=== PATIENT | female | born 1980 | race Caucasian/White ===

== ENCOUNTER 2019-05-14 00:52 | Emergency (ER) | payer OTHER ==
[2019-05-14 01:03] VITALS: BP 179/89; PULSE 87; RESP 18; TEMP 98.3
[2019-05-14] MEDS ORDERED: BUPIVACAINE (PF) 0.5% 30 ML VIAL MISCELLANE STA (01:15)
[2019-05-14] MEDS ORDERED: PENICILLIN VK 500MG STARTER 4 TAB BTL PO STA (01:15)
[2019-05-14] MEDS ORDERED: ACET/COD 300 MG/30 MG STARTER PACK 6 TAB BTL PO STA (01:15)
--- NOTE | 2019-05-14 01:35 | ED ---
General Adult HPI - General Chief complaint: Dental/Oral Stated complaint: Dental Abscess/infection Time Seen by Provider: 05/14/19 01:05 Source: patient Mode of arrival: ambulatory Limitations: no limitations - History of Present Illness Initial comments: 38-year-old female patient presents to the emergency department today for evaluation of left upper dental pain. Patient states she sent having pain to the area for quite some time however it worsened over the last couple of days. Patient states that she did notice an area of swelling to the referral mouth which she was able to pop. States fell tasting fluid came out of ear. Patient denies any trismus or difficulty swallowing. Patient states she's been having intermittent hoarse voice over the last several weeks as well. She denies any fever or chills. Has not yet followed up with a dentist for this. Patient denies any recent rash, shortness breath, chest pain, abdominal pain, diarrhea, constipation, back pain, numbness, tingling, dizziness, weakness, hematuria, dysuria, urinary urgency, urinary frequency, headache, visual changes, or any other complaints. - Related Data Home Medications Medication Instructions Recorded Confirmed Insulin Glulisine [Apidra] 20 unit SQ AC-TID 12/19/13 12/19/13 traMADol HCl [Ultram] 50 mg PO Q6H PRN 12/19/13 12/19/13 Previous Rx's Medication Instructions Recorded Ondansetron [Zofran] 4 mg PO Q8HR PRN #15 tab 12/19/13 Naproxen [EC-Naprosyn] 500 mg PO BID PRN #30 tablet. 05/14/19 Penicillin V Potassium [Pen Vee K] 500 mg PO Q6H #40 tablet 05/14/19 Allergies Allergy/AdvReac Type Severity Reaction Status Date / Time No Known Allergies Allergy Verified 05/14/19 01:03 Review of Systems ROS Statement: Those systems with pertinent positive or pertinent negative responses have been documented in the HPI. ROS Other: All systems not noted in ROS Statement are negative. Past Medical History Past Medical History: Asthma, Diabetes Mellitus, Fibromyalgia Additional Past Medical History / Comment(s): diverticulitis History of Any Multi-Drug Resistant Organisms: None Reported Past Surgical History: Bowel Resection, Section, Cholecystectomy, Tonsillectomy Past Psychological History: Anxiety, Depression Smoking Status: Current every day smoker Past Alcohol Use History: None Reported Past Drug Use History: None Reported General Exam Limitations: no limitations General appearance: alert, in no apparent distress, other (This is a well- developed, well-nourished adult female patient in no acute distress. Vital signs upon presentation are temperature 98.3F, pulse 87, respirations 18, blood pressure 179/89, pulse ox 97% on room air.) Eye exam: Present: normal appearance, PERRL, EOMI. Absent: scleral icterus, conjunctival injection, periorbital swelling ENT exam: Present: normal oropharynx, mucous membranes moist, other (Poor dentition. Left tooth #16 appears to be broken. There is surrounding gingival erythema. Possible ruptured abscess over the ribs the mouth.) Respiratory exam: Present: normal lung sounds bilaterally. Absent: respiratory distress, wheezes, rales, rhonchi, stridor Cardiovascular Exam: Present: regular rate, normal rhythm, normal heart sounds. Absent: systolic murmur, diastolic murmur, rubs, gallop, clicks Neurological exam: Present: alert, oriented X3, CN II-XII intact Psychiatric exam: Present: normal affect, normal mood Skin exam: Present: warm, dry, intact, normal color. Absent: rash Course Vital Signs 05/14/19 00:58 Temperature 98.3 F Pulse Rate 87 Respiratory 18 Rate Blood Pressure 179/89 O2 Sat by Pulse 97 Oximetry Procedures - Nerve Block Consent Obtained: verbal consent Local Anesthetic Used: Marcaine 0.5% Amount of anesthesia used: 3 Side: left Intraoral Nerve Block: superior alveolar Procedure Successful: Yes Complications: none Patient Tolerated Procedure: well, no complications Medical Decision Making - Medical Decision Making 38-year-old female patient presents to the emergency department today for evaluation of left upper dental pain. Physical examination did reveal poor dentition, gingival erythema, hyperplasia. There is possible ruptured abscess over the rough the mouth. Did perform intraoral nerve block which did improve symptoms. Be discharged with antibiotics and pain medication. She is instructed to follow-up with dentistry for recheck as soon as possible. Return parameters discussed in detail. She verbalizes understanding and agrees with this plan. Disposition Clinical Impression: Dental abscess Disposition: HOME SELF-CARE Condition: Good Instructions (If sedation given, give patient instructions): Dental Abscess (ED) Additional Instructions: Complete antibiotic prescription. Follow up with dentistry for recheck as soon as possible. Take medication as directed. Return to the emergency department for any new, worsening, or concerning symptoms. Prescriptions: Naproxen [EC-Naprosyn] 500 mg PO BID PRN #30 tablet.dr ALVAREZ Reason: Pain Penicillin V Potassium [Pen Vee K] 500 mg PO Q6H #40 tablet Is patient prescribed a controlled substance at d/c from ED?: No Referrals: Miriam Eller MD [Primary Care Provider] - 1-2 days Time of Disposition: 01:35
== END 2019-05-14 01:50 | disposition home or self-care (01) ==
LOC: EC 00:52
DX: K04.7 Periapical abscess without sinus (principal); R49.0 Dysphonia; E11.9 Type 2 diabetes mellitus without complications; F17.200 Nicotine dependence, unspecified, uncomplicated; Z79.4 Long term (current) use of insulin
CPT/HCPCS: 64400; 99282

== ENCOUNTER → 2019-12-29 | Outpatient (CLI) | payer OTHER ==
--- NOTE | 2019-12-29 12:55 | US ---
EXAMINATION TYPE: US pelvic complete DATE OF EXAM: 12/29/2019 COMPARISON: None CLINICAL HISTORY: 39-year-old female N92.0 Menorrhagia. TECHNIQUE: Transabdominal sonographic images of the pelvis were acquired. Transvaginal sonographic i mages were medically necessary to better assess the following anatomy: Ovaries Date of LMP: 12/21/19 FINDINGS: EXAM MEASUREMENTS: Uterus: 9.3 x 6.1 x 5.0 cm Endometrial Stripe: 0.9 cm Right Ovary: 3.1 x 2.4 x 2.3 cm Left Ovary: 3.1 x 1.8 x 1.4 cm 1. Uterus: Anteverted . The myometrium demonstrates a texture. Cervical nabothian cysts are also not ed measuring up to 6 mm. 2. Endometrium: wnl 3. Right Ovary: With a 1.8 cm dominant follicle or functional cyst. 4. Left Ovary: with follicles 5. Bilateral Adnexa: wnl 6. Posterior cul-de-sac: wnl IMPRESSION: Heterogeneous myometrium may be seen with diffuse small fibroid change or adenomyosis. A 1.8 cm domin ant follicle or functional cyst in the right ovary.
== END | disposition home or self-care (01) ==
LOC: RADUSWWP 10:10
PROVIDERS: ATTEND Obstetrics & Gynecology
DX: N83.201 Unspecified ovarian cyst, right side (principal)
CPT/HCPCS: 76830; 76856

== ENCOUNTER 2020-02-27 22:54 | Emergency (ER) | payer OTHER ==
[2020-02-27 23:00] VITALS: RESP 18
[2020-02-27] MEDS ORDERED: MORPHINE SULFATE 2 MG/ML SYRINGE IM STA (23:41)
[2020-02-27] MEDS ORDERED: ACET/COD 300 MG/30 MG STARTER PACK 6 TAB BTL PO STA (23:41)
[2020-02-27] MEDS ORDERED: AMOXIC-POT CLAV 875MG STARTER PACK 2 TAB BTL PO STA (23:41)
--- NOTE | 2020-02-27 23:43 | ED ---
ENT HPI - General Chief complaint: Dental/Oral Stated complaint: Facial swelling Time Seen by Provider: 02/27/20 23:00 Source: patient Mode of arrival: ambulatory Limitations: no limitations - History of Present Illness Initial comments: 39 year female presenting today for chief complaint of left upper dental pain x 2-3 days. Patient states pain x 2-3 days, increased swelling of left side of face today. Patient denies fevers chills generalized as a difficulty breathing swallowing or tolerating her oral secretions. Patient has a swelling below tongue or of the neck. Remaining review of systems negative upon arrival patient appears well and nontoxic in no acute distress - Related Data Home Medications Medication Instructions Recorded Confirmed traMADol HCl [Ultram] 100 mg PO Q6H PRN 12/19/13 02/27/20 ALPRAZolam [Xanax] 0.25 mg PO DAILY PRN 02/27/20 02/27/20 Beclomethasone Dipropionate [Qvar 1 puff INHALATION RT-BID PRN 02/27/20 02/27/20 80mcg Redihaler] DULoxetine HCL [Cymbalta] 30 mg PO DAILY 02/27/20 02/27/20 DULoxetine HCL [Cymbalta] 60 mg PO DAILY 02/27/20 02/27/20 Ibuprofen [Motrin Ib] 600 mg PO Q8H PRN 02/27/20 02/27/20 Liraglutide [Victoza 3-Tj] 1.8 mg SQ DAILY 02/27/20 02/27/20 Previous Rx's Medication Instructions Recorded Amoxic-Pot Clav 875-125Mg 1 tab PO Q12HR 7 Days #14 tab 02/27/20 [Augmentin 875-125] Allergies Allergy/AdvReac Type Severity Reaction Status Date / Time No Known Allergies Allergy Verified 02/27/20 23:00 Review of Systems ROS Statement: Those systems with pertinent positive or pertinent negative responses have been documented in the HPI. ROS Other: All systems not noted in ROS Statement are negative. Past Medical History Past Medical History: Asthma, Diabetes Mellitus, Fibromyalgia Additional Past Medical History / Comment(s): diverticulitis History of Any Multi-Drug Resistant Organisms: MRSA Past Surgical History: Bowel Resection, Section, Cholecystectomy, Tonsillectomy Past Psychological History: Anxiety, Depression Smoking Status: Current every day smoker Past Alcohol Use History: None Reported Past Drug Use History: None Reported General Exam - General Exam Comments Initial Comments: General: The patient is awake and alert, in no distress Eye: +3 mm pupils are equal, round and reactive to light, extra-ocular movements are intact. No nystagmus. There is normal conjunctiva bilaterally. No signs of icterus. Ears, nose, mouth and throat: There are moist mucous membranes and no oral lesions. Left upper facial swelling. No swelling below the angle of the mandible no swelling below the tongue. No tripoding drooling patient tolerated oral secretions. There is no localized fluctuant area however there is tenderness to percussion of tooth number 14 Neck: The neck is supple, there is no tenderness or JVD. Musculoskeletal: Normal ROM, no tenderness. Strength 5/5. Sensation intact. Radial pulses equal bilaterally 2+. Neurological: A&O x 3. CN II-XII intact grossly, There are no obvious motor or sensory deficits. Coordination appears grossly intact. Speech is normal. Skin: Skin is warm and dry and no rashes or lesions are noted. Psychiatric: Cooperative, appropriate mood & affect, normal judgment. Limitations: no limitations Course Vital Signs 02/27/20 02/28/20 22:57 00:33 Temperature 98.8 F 98.6 F Pulse Rate 111 H 92 Respiratory 18 18 Rate Blood Pressure 116/83 123/64 O2 Sat by Pulse 99 97 Oximetry Medical Decision Making - Medical Decision Making 39yo female presenting for cc of dental pain, no signsof lidwigs angina, tolerating oral intake. pt appears nontoxic. will discharge with oral abx and dentist f/u return for swelling under tongue difficulty swallowing/neck swelling, compressive symptoms/fevers. patient agreeable pt discharged appearing well. Disposition Clinical Impression: Dental infection Disposition: HOME SELF-CARE Condition: Good Instructions (If sedation given, give patient instructions): Dental Abscess (ED) Additional Instructions: Please use medication as discussed. Please follow-up with dentist in the next 2 days Please return to emergency room if the symptoms increase or worsen or for any other concerns. Prescriptions: Amoxic-Pot Clav 875-125Mg [Augmentin 875-125] 1 tab PO Q12HR 7 Days #14 tab Is patient prescribed a controlled substance at d/c from ED?: No Referrals: Miguel Roman MD [Primary Care Provider] - 1-2 days Time of Disposition: 23:42
[2020-02-28 00:34] VITALS: BP 123/64; PULSE 92; TEMP 98.6
== END 2020-02-28 00:34 | disposition home or self-care (01) ==
LOC: EC 22:54
DX: K04.7 Periapical abscess without sinus (principal); F41.9 Anxiety disorder, unspecified; F32.9 Major depressive disorder, single episode, unspecified; J45.909 Unspecified asthma, uncomplicated; E11.9 Type 2 diabetes mellitus without complications; F17.200 Nicotine dependence, unspecified, uncomplicated; Z79.4 Long term (current) use of insulin
CPT/HCPCS: 99283; 96372; J2270

== ENCOUNTER 2020-11-02 06:59 | Emergency (ER) | payer OTHER ==
[2020-11-02] MEDS ORDERED: ACETAMINOPHEN TAB 500 MG TAB PO STA (07:17)
--- NOTE | 2020-11-02 07:31 | ED ---
General Adult HPI - General Chief complaint: Headache Stated complaint: back pain, headache Time Seen by Provider: 11/02/20 07:11 Source: patient Mode of arrival: ambulatory - History of Present Illness Initial comments: 39 year-old female patient with past history significant for diabetes and fibromyalgia, presents to the emergency department today for evaluation of headache and upper back pain. Patient states symptoms started a few days ago. States that she had some "heartburn" and chest pain. States that seemed to resolve but she developed headache and has had some pain between her shoulder blades. She states today the headache is worse, it is in the back of her head. D enies history of migraines or similar headache. Denies any blurred or double vision. She reports feeling shaky and weak. Reports cough that has been persistent over the last couple of weeks. Denies any known fever or chills. She did have an episode of vomiting today. Denies abdominal pain, constipation, or diarrhea. Patient denies any recent rash, shortness of breath, numbness, tingling, dizziness, weakness, hematuria, dysuria, urinary urgency, urinary frequency, or any other complaints. - Related Data Home Medications Medication Instructions Recorded Confirmed traMADol HCl [Ultram] 100 mg PO Q6H PRN 12/19/13 02/27/20 ALPRAZolam [Xanax] 0.25 mg PO DAILY PRN 02/27/20 02/27/20 Beclomethasone Dipropionate [Qvar 1 puff INHALATION RT-BID PRN 02/27/20 02/27/20 80mcg Redihaler] DULoxetine HCL [Cymbalta] 30 mg PO DAILY 02/27/20 02/27/20 DULoxetine HCL [Cymbalta] 60 mg PO DAILY 02/27/20 02/27/20 Ibuprofen [Motrin Ib] 600 mg PO Q8H PRN 02/27/20 02/27/20 Liraglutide [Victoza 3-Tj] 1.8 mg SQ DAILY 02/27/20 02/27/20 Previous Rx's Medication Instructions Recorded Amoxic-Pot Clav 875-125Mg 1 tab PO Q12HR 7 Days #14 tab 02/27/20 [Augmentin 875-125] Ipratropium-Albuterol Nebulize 3 ml INHALATION Q4H PRN #30 neb 11/02/20 [Duoneb 0.5 mg-3 mg/3 ml Soln] Allergies Allergy/AdvReac Type Severity Reaction Status Date / Time No Known Allergies Allergy Verified 11/02/20 07:06 Review of Systems ROS Statement: Those systems with pertinent positive or pertinent negative responses have been documented in the HPI. ROS Other: All systems not noted in ROS Statement are negative. Past Medical History Past Medical History: Asthma, Diabetes Mellitus, Fibromyalgia Additional Past Medical History / Comment(s): diverticulitis History of Any Multi-Drug Resistant Organisms: MRSA Date of last positivie culture/infection: Nov 2019 Past Surgical History: Bowel Resection, Section, Cholecystectomy, Tonsillectomy Past Psychological History: Anxiety, Depression Smoking Status: Current every day smoker Past Alcohol Use History: None Reported Past Drug Use History: None Reported General Exam General appearance: alert, in no apparent distress, other (This is a well- developed, well-nourished adult female patient in no acute distress. Vital signs upon presentation are temperature 98.4F, pulse 110, respirations 17, b lood pressure 144/90, pulse ox 98% on room air.) Eye exam: Present: normal appearance, PERRL, EOMI. Absent: scleral icterus, conjunctival injection, nystagmus, periorbital swelling ENT exam: Present: normal exam, normal oropharynx, mucous membranes moist Respiratory exam: Present: normal lung sounds bilaterally. Absent: respiratory distress, wheezes, rales, rhonchi, stridor Cardiovascular Exam: Present: normal rhythm, tachycardia, normal heart sounds. Absent: systolic murmur, diastolic murmur, rubs, gallop, clicks GI/Abdominal exam: Present: soft, normal bowel sounds. Absent: distended, tenderness, guarding, rebound, rigid Neurological exam: Present: alert, oriented X3, CN II-XII intact Psychiatric exam: Present: normal affect, normal mood Skin exam: Present: warm, dry, intact, normal color. Absent: rash Course Vital Signs 11/02/20 11/02/20 11/02/20 07:02 08:06 09:00 Temperature 98.4 F 100.2 F H 98.1 F Pulse Rate 110 H 95 92 Respiratory 17 18 18 Rate Blood Pressure 144/90 162/100 150/90 O2 Sat by Pulse 98 98 98 Oximetry 11/02/20 09:44 Temperature 98.1 F Pulse Rate 98 Respiratory 18 Rate Blood Pressure 131/90 O2 Sat by Pulse 98 Oximetry EKG Findings - EKG Comments: EKG Findings:: EKG obtained at 11 15 shows normal sinus rhythm with a ventricular rate of 94, GA interval 170, QRS duration 78, QT 344, QTC 430. No evidence of ST elevation or depression. Medical Decision Making - Medical Decision Making 39 year old female patient percents for evaluation of multiple complaints. Reports headache, upper back pain, chest pain, and cough. Physical examination revealed. Lung sounds. She is neurologically intact with no focal deficits. Does not take any blood thinners. Oxygen saturation is satisfactory. She did have mild temperature upon arrival to 100.2F. Chest x-ray is negative. Labs reviewed and are relatively unremarkable. She did have elevated blood sugar which I did inform her of. Chest x-ray showed possible viral changes. I did discuss findings and results with her. She'll be given breathing treatments for home. We will hold steroids at this time to her diabetes. She is given pain medication here. She is instructed to follow-up the primary care physician for recheck in 1-2 days. Return parameters were discussed in detail. She agueda balizes understanding and agrees with this plan. Case discussed my attending Dr. Aldrich. - Lab Data Result diagrams: 11/02/20 07:30 11/02/20 07:30 Lab Results 11/02/20 11/02/20 11/02/20 Range/Units 07:30 07:30 07:30 WBC 10.8 H (3.8-10.6) k/uL RBC 4.98 (3.80-5.40) m/uL Hgb 15.7 (11.4-16.0) gm/dL Hct 43.7 (34.0-46.0) % MCV 87.7 (80.0-100.0) fL MCH 31.4 (25.0-35.0) pg MCHC 35.9 (31.0-37.0) g/dL RDW 12.9 (11.5-15.5) % Plt Count 294 (150-450) k/uL MPV 7.5 Neutrophils % 76 % Lymphocytes % 16 % Monocytes % 3 % Eosinophils % 3 % Basophils % 1 % Neutrophils # 8.2 H (1.3-7.7) k/uL Lymphocytes # 1.7 (1.0-4.8) k/uL Monocytes # 0.4 (0-1.0) k/uL Eosinophils # 0.4 (0-0.7) k/uL Basophils # 0.1 (0-0.2) k/uL PT 11.1 (9.0-12.0) sec INR 1.0 (<1.2) APTT 23.4 (22.0-30.0) sec Sodium 136 L (137-145) mmol/L Potassium 4.3 (3.5-5.1) mmol/L Chloride 104 (98-107) mmol/L Carbon Dioxide 19 L (22-30) mmol/L Anion Gap 13 mmol/L BUN 11 (7-17) mg/dL Creatinine 0.46 L (0.52-1.04) mg/dL Est GFR (CKD-EPI)AfAm >90 (>60 ml/min/1.73 sqM) Est GFR (CKD-EPI)NonAf >90 (>60 ml/min/1.73 sqM) Glucose 280 H (74-99) mg/dL Plasma Lactic Acid Jun (0.7-2.0) mmol/L Calcium 10.4 H (8.4-10.2) mg/dL Total Bilirubin 0.5 (0.2-1.3) mg/dL AST 22 (14-36) U/L ALT 21 (4-34) U/L Alkaline Phosphatase 83 (38-126) U/L Troponin I (0.000-0.034) ng/mL Total Protein 7.4 (6.3-8.2) g/dL Albumin 4.7 (3.5-5.0) g/dL Urine Color Urine Appearance (Clear) Urine pH (5.0-8.0) Ur Specific [place] (1.001-1.035) Urine Protein (Negative) Urine Glucose (UA) (Negative) Urine Ketones (Negative) Urine Blood (Negative) Urine Nitrite (Negative) Urine Bilirubin (Negative) Urine Urobilinogen (<2.0) mg/dL Ur Leukocyte Esterase (Negative) Urine HCG, Qual (Not Detectd) Coronavirus (PCR) (Not Detectd) 11/02/20 11/02/20 11/02/20 Range/Units 07:30 07:47 07:47 WBC (3.8-10.6) k/uL RBC (3.80-5.40) m/uL Hgb (11.4-16.0) gm/dL Hct (34.0-46.0) % MCV (80.0-100.0) fL MCH (25.0-35.0) pg MCHC (31.0-37.0) g/dL RDW (11.5-15.5) % Plt Count (150-450) k/uL MPV Neutrophils % % Lymphocytes % % Monocytes % % Eosinophils % % Basophils % % Neutrophils # (1.3-7.7) k/uL Lymphocytes # (1.0-4.8) k/uL Monocytes # (0-1.0) k/uL Eosinophils # (0-0.7) k/uL Basophils # (0-0.2) k/uL PT (9.0-12.0) sec INR (<1.2) APTT (22.0-30.0) sec Sodium (137-145) mmol/L Potassium (3.5-5.1) mmol/L Chloride (98-107) mmol/L Carbon Dioxide (22-30) mmol/L Anion Gap mmol/L BUN (7-17) mg/dL Creatinine (0.52-1.04) mg/dL Est GFR (CKD-EPI)AfAm (>60 ml/min/1.73 sqM) Est GFR (CKD-EPI)NonAf (>60 ml/min/1.73 sqM) Glucose (74-99) mg/dL Plasma Lactic Acid Jun 1.2 (0.7-2.0) mmol/L Calcium (8.4-10.2) mg/dL Total Bilirubin (0.2-1.3) mg/dL AST (14-36) U/L ALT (4-34) U/L Alkaline Phosphatase (38-126) U/L Troponin I <0.012 (0.000-0.034) ng/mL Total Protein (6.3-8.2) g/dL Albumin (3.5-5.0) g/dL Urine Color Light Yellow Urine Appearance Clear (Clear) Urine pH 5.0 (5.0-8.0) Ur Specific [place] 1.027 (1.001-1.035) Urine Protein Negative (Negative) Urine Glucose (UA) 4+ H (Negative) Urine Ketones Trace H (Negative) Urine Blood Negative (Negative) Urine Nitrite Negative (Negative) Urine Bilirubin Negative (Negative) Urine Urobilinogen <2.0 (<2.0) mg/dL Ur Leukocyte Esterase Negative (Negative) Urine HCG, Qual (Not Detectd) Coronavirus (PCR) (Not Detectd) 11/02/20 11/02/20 Range/Units 07:47 07:47 WBC (3.8-10.6) k/uL RBC (3.80-5.40) m/uL Hgb (11.4-16.0) gm/dL Hct (34.0-46.0) % MCV (80.0-100.0) fL MCH (25.0-35.0) pg MCHC (31.0-37.0) g/dL RDW (11.5-15.5) % Plt Count (150-450) k/uL MPV Neutrophils % % Lymphocytes % % Monocytes % % Eosinophils % % Basophils % % Neutrophils # (1.3-7.7) k/uL Lymphocytes # (1.0-4.8) k/uL Monocytes # (0-1.0) k/uL Eosinophils # (0-0.7) k/uL Basophils # (0-0.2) k/uL PT (9.0-12.0) sec INR (<1.2) APTT (22.0-30.0) sec Sodium (137-145) mmol/L Potassium (3.5-5.1) mmol/L Chloride (98-107) mmol/L Carbon Dioxide (22-30) mmol/L Anion Gap mmol/L BUN (7-17) mg/dL Creatinine (0.52-1.04) mg/dL Est GFR (CKD-EPI)AfAm (>60 ml/min/1.73 sqM) Est GFR (CKD-EPI)NonAf (>60 ml/min/1.73 sqM) Glucose (74-99) mg/dL Plasma Lactic Acid Jun (0.7-2.0) mmol/L Calcium (8.4-10.2) mg/dL Total Bilirubin (0.2-1.3) mg/dL AST (14-36) U/L ALT (4-34) U/L Alkaline Phosphatase (38-126) U/L Troponin I (0.000-0.034) ng/mL Total Protein (6.3-8.2) g/dL Albumin (3.5-5.0) g/dL Urine Color Urine Appearance (Clear) Urine pH (5.0-8.0) Ur Specific [place] (1.001-1.035) Urine Protein (Negative) Urine Glucose (UA) (Negative) Urine Ketones (Negative) Urine Blood (Negative) Urine Nitrite (Negative) Urine Bilirubin (Negative) Urine Urobilinogen (<2.0) mg/dL Ur Leukocyte Esterase (Negative) Urine HCG, Qual Not Detected (Not Detectd) Coronavirus (PCR) Not Detected (Not Detectd) - Radiology Data Radiology results: report reviewed, image reviewed Two-view x-ray of the chest is obtained. Report is reviewed in its entirety. Impression by Dr. Turpin shows is subtle interstitial opacities could be on the basis of subsegmental atelectatic changes small airway disease and or atypical viral infection Disposition Clinical Impression: Headache, Viral bronchitis Disposition: HOME SELF-CARE Condition: Good Instructions (If sedation given, give patient instructions): Acute Bronchitis (ED), Acute Headache (ED) Additional Instructions: Take medications as directed. Follow-up with a primary care physician for recheck as soon as possible. Return for any new, worsening, or concerning sympt oms. Prescriptions: Ipratropium-Albuterol Nebulize [Duoneb 0.5 mg-3 mg/3 ml Soln] 3 ml INHALATION Q4H PRN #30 neb PRN Reason: Wheezing/Shortness of breath Is patient prescribed a controlled substance at d/c from ED?: No Referrals: Quentin Cohen [STAFF PHYSICIAN] - 1-2 days Time of Disposition: 09:38
[2020-11-02] MEDS: SODIUM CHLORIDE 0.9% 500 ML 500 ML IV SCH ×3 (07:50→08:48)
[2020-11-02 07:57] LABS: Basophils # (A) 0.1 k/uL (0-0.2); Basophils % (A) 1 %; Eosinophils # (A) 0.4 k/uL (0-0.7); Eosinophils % (A) 3 %; HCT 43.7 % (34.0-46.0); HGB 15.7 gm/dL (11.4-16.0); Lymphocytes # (A) 1.7 k/uL (1.0-4.8); Lymphocytes % (A) 16 %; MCH 31.4 pg (25.0-35.0); MCHC 35.9 g/dL (31.0-37.0); MCV 87.7 fL (80.0-100.0); Mean Platelet Volume 7.5; Monocytes # (A) 0.4 k/uL (0-1.0); Monocytes % (A) 3 %; Neutrophils # (A) 8.2 k/uL (1.3-7.7); Neutrophils % (A) 76 %; Platelet Count 294 k/uL (150-450); RBC 4.98 m/uL (3.80-5.40); RDW 12.9 % (11.5-15.5); WBC 10.8 k/uL (3.8-10.6)
[2020-11-02 08:10] LABS: ALT 21 U/L (4-34); AST 22 U/L (14-36); African American GFR (CKD) >90 (>60 ml/min/1.73 sqM); Albumin 4.7 g/dL (3.5-5.0); Alkaline Phosphatase 83 U/L (38-126); Anion Gap 13 mmol/L; Blood Urea Nitrogen 11 mg/dL (7-17); Calcium 10.4 mg/dL (8.4-10.2); Carbon Dioxide 19 mmol/L (22-30); Chloride 104 mmol/L (98-107); Glucose 280 mg/dL (74-99); Non-African American GFR(CKD) >90 (>60 ml/min/1.73 sqM); Potassium 4.3 mmol/L (3.5-5.1); Sodium 136 mmol/L (137-145); Total Bilirubin 0.5 mg/dL (0.2-1.3); Total Protein 7.4 g/dL (6.3-8.2)
[2020-11-02 08:13] LABS: Partial Thromboplastin Time 23.4 sec (22.0-30.0); Prothrombin Time 11.1 sec (9.0-12.0)
--- NOTE | 2020-11-02 08:14 | XR ---
EXAMINATION TYPE: XR chest 2V DATE OF EXAM: 11/02/2020 COMPARISON: 08/04/2012 HISTORY: Fever TECHNIQUE: Frontal and lateral views of the chest are obtained. FINDINGS AND IMPRESSION: Scattered bibasilar linear appearing opacities and minimal subtle interstitial opacities could be on the basis of subsegmental atelectatic changes, small airway disease and/or atypical viral infection c ould have a similar appearance. No pneumothorax or pleural effusion. No pneumothorax or pleural effusion identified. Cardiomediastinal silhouette within normal limit. Osseous structures are unremarkable.
[2020-11-02] MEDS ORDERED: KETOROLAC 15 MG/ML 1 ML VIAL IVP STA (08:15)
[2020-11-02] MEDS ORDERED: diphenhydrAMINE 50 MG/ML 1 ML VIAL IVP STA (08:15)
[2020-11-02] MEDS ORDERED: METOCLOPRAMIDE 5 MG/ML 2 ML VIAL IVP STA (08:15)
[2020-11-02 08:18] LABS: Appearance,Urine Clear (Clear); Bilirubin,Urine Negative (Negative); Blood,Urine Negative (Negative); Color,Urine Light Yellow; Glucose,Urine (UA) 4+ (Negative); Ketones,Urine Trace (Negative); Leukocyte Esterase,Urine Negative (Negative); Nitrite,Urine Negative (Negative); Protein,Urine Negative (Negative); Specific Gravity,Urine 1.027 (1.001-1.035); Urobilinogen,Urine <2.0 mg/dL (<2.0)
[2020-11-02 08:39] VITALS: RESP 18
[2020-11-02 09:35] VITALS: TEMP 98.1
[2020-11-02] MEDS ORDERED: HYDROmorphone 1 MG/ML 1 ML SYRINGE IVP STA (09:37)
[2020-11-02 09:50] VITALS: BP 131/90; PULSE 98
== END 2020-11-02 09:47 | disposition home or self-care (01) ==
LOC: EC 06:59
DX: J20.8 Acute bronchitis due to other specified organisms (principal); R51.9 Headache, unspecified; E11.9 Type 2 diabetes mellitus without complications; J45.909 Unspecified asthma, uncomplicated; M79.7 Fibromyalgia; F32.9 Major depressive disorder, single episode, unspecified; F17.200 Nicotine dependence, unspecified, uncomplicated
CPT/HCPCS: 36415; 93005; 80053; 83605; 84484; 85025; 85610; 85730; 81003; 81025; 87040; 87635; 71046; 99285; 96374; 96375 ×3; 96361; J1200; J2765; J1170; J1885; 99284

== ENCOUNTER 2020-11-02 16:55 | Emergency (ER) | payer OTHER ==
[2020-11-02 17:08] VITALS: RESP 18; TEMP 98.7
[2020-11-02] MEDS ORDERED: KETOROLAC 15 MG/ML 1 ML VIAL IM STA (17:27)
[2020-11-02] MEDS ORDERED: CYCLOBENZAPRINE 10 MG TAB PO STA (17:32)
--- NOTE | 2020-11-02 18:19 | XR ---
Result: History: Pain and headache. Comparison: None available. Technique: 5 views of the cervical spine. 3 views of the thoracic spine. Findings: The bone mineralization is normal. Cervical spine: There is no evidence of an acute fracture or subluxation. The vertebral body heights are preserved t hroughout the imaged cervical spine. The vertebral elements are in anatomic alignment. There is nor mal alignment of C1 on C2 as seen on the open mouth odontoid view. There is no significant disc spac e narrowing. No significant foramina narrowing based on radiographs. The prevertebral soft tissues a re within normal limits. Thoracic spine: There is no acute fracture or subluxation. The vertebral body heights are preserved throughout the i saad thoracic spine. The vertebral elements are in anatomic alignment. The disc heights are mainta ined throughout the imaged spine. Impression: No significant osseous abnormality of the cervicothoracic spine.
--- NOTE | 2020-11-02 18:35 | ED ---
Back Pain HPI - General Chief Complaint: Back Pain/Injury Stated Complaint: Back/Neck pain Time Seen by Provider: 11/02/20 17:16 Source: patient, RN notes reviewed Limitations: no limitations - History of Present Illness Initial Comments: 39-year-old female presents to emergency department complaining of right sided mid back muscle pain and skin sensitivity. She notes she does have a history of fibromyalgia and generalized body aches and pains. She did not appear to be in any distress while sitting up in bed during exam and interview. She noted that she was seen earlier this morning and noted that the pain medications were also she came back today to get symptomatic control. She denied any new injury trauma chest pain shortness of breath nausea vomiting diarrhea constipation fever fatigue chills. - Related Data Home Medications Medication Instructions Recorded Confirmed traMADol HCl [Ultram] 100 mg PO Q6H PRN 12/19/13 02/27/20 ALPRAZolam [Xanax] 0.25 mg PO DAILY PRN 02/27/20 02/27/20 Beclomethasone Dipropionate [Qvar 1 puff INHALATION RT-BID PRN 02/27/20 02/27/20 80mcg Redihaler] DULoxetine HCL [Cymbalta] 30 mg PO DAILY 02/27/20 02/27/20 DULoxetine HCL [Cymbalta] 60 mg PO DAILY 02/27/20 02/27/20 Ibuprofen [Motrin Ib] 600 mg PO Q8H PRN 02/27/20 02/27/20 Liraglutide [Victoza 3-Jt] 1.8 mg SQ DAILY 02/27/20 02/27/20 Previous Rx's Medication Instructions Recorded Amoxic-Pot Clav 875-125Mg 1 tab PO Q12HR 7 Days #14 tab 02/27/20 [Augmentin 875-125] Cyclobenzaprine HCl 10 mg PO TID 7 Days #21 tab 11/02/20 Ipratropium-Albuterol Nebulize 3 ml INHALATION Q4H PRN #30 neb 11/02/20 [Duoneb 0.5 mg-3 mg/3 ml Soln] Allergies Allergy/AdvReac Type Severity Reaction Status Date / Time No Known Allergies Allergy Verified 11/02/20 17:08 Review of Systems ROS Statement: Those systems with pertinent positive or pertinent negative responses have been documented in the HPI. ROS Other: All systems not noted in ROS Statement are negative. Past Medical History Past Medical History: Asthma, Diabetes Mellitus, Fibromyalgia Additional Past Medical History / Comment(s): diverticulitis History of Any Multi-Drug Resistant Organisms: MRSA Date of last positivie culture/infection: Nov 2019 Past Surgical History: Bowel Resection, Section, Cholecystectomy, Tonsillectomy Past Psychological History: Anxiety, Depression Smoking Status: Current every day smoker Past Alcohol Use History: None Reported Past Drug Use History: None Reported General Exam Limitations: no limitations General appearance: alert, in no apparent distress Head exam: Present: atraumatic, normocephalic, normal inspection Eye exam: Present: normal appearance, PERRL, EOMI. Absent: scleral icterus, conjunctival injection, periorbital swelling Neck exam: Present: normal inspection Respiratory exam: Present: normal lung sounds bilaterally. Absent: respiratory distress, wheezes, rales, rhonchi, stridor Cardiovascular Exam: Present: regular rate, normal rhythm, normal heart sounds. Absent: systolic murmur, diastolic murmur, rubs, gallop, clicks GI/Abdominal exam: Present: soft, normal bowel sounds. Absent: distended, tenderness, guarding, rebound, rigid Extremities exam: Present: normal inspection, full ROM, normal capillary refill. Absent: tenderness, pedal edema, joint swelling, calf tenderness Back exam: Present: normal inspection, paraspinal tenderness (Right side more so than the left). Absent: CVA tenderness (R), CVA tenderness (L), vertebral tenderness Neurological exam: Present: alert, oriented X3 Psychiatric exam: Present: normal affect, normal mood Skin exam: Present: warm, dry, intact, normal color. Absent: rash Course Vital Signs 11/02/20 11/02/20 17:03 17:07 Temperature 98.7 F Pulse Rate 107 H Respiratory 18 Rate Blood Pressure 178/92 O2 Sat by Pulse 96 Oximetry Medical Decision Making - Medical Decision Making 39-year-old female complaining of mid back and neck tightness and tenderness with skin sensitivity. X-rays of the thoracic and cervical spine ordered. 15 mg of Toradol, 10 mg of Flexeril ordered. X-rays negative for any acute osseous abnormality. Case discussed with Dr. Mitchell, patient discharge home with follow-up to primary care. - Radiology Data Radiology results: report reviewed, image reviewed Thoracic and cervical spine x-ray: No acute osseous abnormalities noted. Disposition Clinical Impression: Thoracic back pain, Cervical pain (neck) Disposition: HOME SELF-CARE Condition: Stable Instructions (If sedation given, give patient instructions): Back Pain (ED) Additional Instructions: Please return to the Emergency Department if symptoms worsen or any other concerns. Follow-up primary care in the next 1-2 days. ER is not a pain clinic if pain continues follow-up primary care as for pain medicine referral. Take muscle relaxers as prescribed. Is patient prescribed a controlled substance at d/c from ED?: No Referrals: None,Stated [Primary Care Provider] - 1-2 days Time of Disposition: 18:42
[2020-11-02 19:02] VITALS: BP 170/99; PULSE 99
== END 2020-11-02 19:01 | disposition home or self-care (01) ==
LOC: EC 16:55
DX: M54.2 Cervicalgia (principal); M54.6 Pain in thoracic spine; E11.9 Type 2 diabetes mellitus without complications; F32.9 Major depressive disorder, single episode, unspecified; F41.9 Anxiety disorder, unspecified; J45.909 Unspecified asthma, uncomplicated; M79.7 Fibromyalgia; F17.200 Nicotine dependence, unspecified, uncomplicated; Z79.1 Long term (current) use of non-steroidal anti-inflammatories (NSAID); Z79.51 Long term (current) use of inhaled steroids
CPT/HCPCS: 72070; 72050; 99283; 96372; J1885